=== PATIENT | female | born 1960 | race Caucasian/White ===

== ENCOUNTER 2024-06-17 10:47 | Inpatient (IN) | payer OTHER ==
[~2024-06-17] VITALS: Ht 157.5 cm; Wt 90.7 kg
[2024-06-17 10:56] VITALS: BP 94/52; PULSE 95; RESP 17; TEMP 97.9; O2SAT 99
--- NOTE | 2024-06-17 11:05 | NUR ---
64/F PRESENTED IN ED CC OF N/V/D SINCE YESTERDAY POST PT TAKING ANTIBIOTIC RX FOR THE SAME SYMPTOMS STATED BY PT CAREGIVER. HX OF N/V/D ON AND OFF FOR 3 WEEKS. PMHX MENTALYT DELAYED, DM, HTN NKA
--- NOTE | 2024-06-17 12:10 | NUR ---
Patient being evaluated by physician at bedside.
[2024-06-17 12:25] LABS: BASOPHILS % (AUTO) 0.1 % (0.0-2.0); EOSINOPHILS # (AUTO) 0.1 K/uL (0-0.4); EOSINOPHILS % (AUTO) 1.1 % (0.0-4.0); HEMATOCRIT 37.2 % (36-48); HEMOGLOBIN 12.4 g/dL (12.0-16.0); LYMPHOCYTES # (AUTO) 0.7 K/uL (2.5-16.5); MEAN CORPUSCULAR HEMOGLOBIN 30 pg (27-31); MEAN CORPUSCULAR HGB CONC 33 g/dL (33-37); MEAN CORPUSCULAR VOLUME 89.9 fL (80-94); MONOCYTES # (AUTO) 0.8 K/uL (0.8-1.0); MONOCYTES % (AUTO) 9.7 % (1.7-9.3); NEUTROPHILS # (AUTO) 6.8 K/uL (1.8-7.7); NEUTROPHILS % (AUTO) 81.1 % (42.2-75.2); PLATELET COUNT (AUTO) 127 K/uL (140-450); RED BLOOD CELL COUNT(AUTO) 4.14 MIL/uL (4.20-5.40); RED CELL DISTRIBUTION WIDTH 14.9 % (11.6-13.7); WHITE BLOOD COUNT (AUTO) 8.4 K/uL (4.8-10.8)
[2024-06-17 12:40] LABS: ALANINE AMINOTRANSFERASE 13 U/L (12-78); ALBUMIN 2.9 g/dL (3.4-5.0); ALKALINE PHOSPHATASE 78 U/L (50-136); ANION GAP 12.4 (8-16); ASPARTATE AMINOTRANSFERASE 11 U/L (15-37); CALCIUM 8.8 mg/dL (8.5-10.1); CARBON DIOXIDE 24.3 mmol/L (21-32); CHLORIDE 97 mmol/L (98-107); CREATININE 0.9 mg/dL (0.6-1.3); GFR ARICAN-AMERICAN 81 mL/min (>90); GFR NON ARICAN-AMERICAN 67 mL/min (>90); GLUCOSE 88 mg/dL (74-106); POTASSIUM 4.7 mmol/L (3.5-5.1); SODIUM SERUM 129 mmol/L (136-145); TOTAL BILIRUBIN 0.4 mg/dL (0.0-1.0); TOTAL PROTEIN, SERUM 7.8 g/dL (6.4-8.2); UREA NITROGEN, BLOOD 26 mg/dL (7-18)
[2024-06-17 13:04] LABS: BILIRUBIN,URINE NEGATIVE (NEGATIVE); BLOOD, URINE 1+ (NEGATIVE); COLOR,URINE YELLOW (YELLOW); LEUKOCYTE ESTERASE ,URINE TRACE (NEGATIVE); NITRITE, URINE POSITIVE (NEGATIVE); PROTEIN,URINE NEGATIVE (NEGATIVE); UGLUCOSE NEGATIVE (NEGATIVE); UROBILINOGEN,URINE 0.2 EU/dL (0.2 - 1)
[2024-06-17 13:06] LABS: APPEARANCE,URINE SLIGHTLY HAZY (CLEAR)
[2024-06-17] MEDS: KETOROLAC 30 MG/ML VIAL IVP ONE (13:20)
[2024-06-17] MEDS: NACL 0.9% 1,000 ML IV ONE ×2 (13:21→15:16)
[2024-06-17 13:54] LABS: LACTIC ACID 2.2 mmol/L (0.4-2.0)
[2024-06-17 14:10] LABS: BACTERIA,URINE 1+ /HPF (None Seen)
[2024-06-17 14:12] LABS: SQUAMOUS EPITHELIAL CELL,UR 0-3 (FEW) /LPF (0-3 (FEW))
[2024-06-17] MEDS ORDERED: cefTRIAXone 1,000 MG VIAL ONE (15:08)
--- NOTE | 2024-06-17 15:24 | NUR ---
PT PRIMARY CAREGIVER SOBIA STATED SHE WILL FAX THE MOST RECENT ACTIVE MEDICATION PT IS TAKING TO ER. WHEN ASK LIST OF PT MEDICATION FOR MED RECONCILIATION.
--- NOTE | 2024-06-17 15:45 | NUR ---
SOBIA, PT's CAREGIVER STATED SHE WILL BE TAKING PT's BELONGINGS WITH HER BACK HOME.
[2024-06-17] MEDS: NACL 0.9% 1,000 ML IV SCH (16:10)
[2024-06-17] MEDS ORDERED: DEXTROSE 50% 50 ML SYR IVP PRN (16:10)
[2024-06-17] MEDS ORDERED: HYDROcodone/APAP 5/325 MG 1 TAB TAB PO PRN (16:10)
[2024-06-17] MEDS ORDERED: ACETAMINOPHEN 325 MG TAB PO PRN (16:10)
[2024-06-17] MEDS ORDERED: INSULIN LISPRO SLIDING SCALE 100 UNITS/ML VIAL SUBQ PRN (16:10)
[2024-06-17] MEDS: BLOOD GLUCOSE MONITORING 1 DEV DEV FS SCH (17:05)
--- NOTE | 2024-06-17 17:05 | NUR ---
BG 45 MD VIGIL INFORMED ,AND MD LAWSON WAS PAGED
--- NOTE | 2024-06-17 17:08 | NUR ---
PT IV IS INFILTRATED UNABLE TO PUSH IV PUSH MEDICATION FOR PT BLOOD SUGAR ABBOJECT, CN EMANUEL INFOMRED PT IS HARD STICK.
--- NOTE | 2024-06-17 17:10 | NUR ---
PT OFFERED ORANGE JUICE 2 SERVING SIZE OF OJ P.O
[2024-06-17] MEDS: DEXTROSE 50% 50 ML SYR IVP ONE (17:52)
--- NOTE | 2024-06-17 17:58 | NUR ---
REPORT GIVEN TO HUGH ROMAN PT GOING TO 118 TELE. MED REC UNABLE TO OBTAIN RN YAMILET RAMSAY PRIMARY STRAW BOSS TO FAX THE MED LIST. NO MED LIST RECIEVED OF THIS POINT.
--- NOTE | 2024-06-17 18:04 | NUR ---
UNABLE TO OBTAIN HOME MEDICATION AT THIS TIME. CN INFORMED.
--- NOTE | 2024-06-17 18:09 | NUR ---
PRIMARY COLLECTIONS ASSISTANT SOBIA WAS GIVEN A CALL TO FOLLOW UP WITH PT HOME MED LIST UNABLE TO REACH. NO FAX MEDICATION RECIEVE SOBIA STATED PRIOS LEAVING THE HOSPITAL
--- NOTE | 2024-06-17 18:23 | NUR ---
PT TRANSFER TO TELE 118 RN INFORMED UNABLE TO OBTAIN MEDICATION, AND GLUCOSE 106 PRIOR TO DC IN ED. NO FURTHER QUESTIONS ASKED.
[2024-06-17 18:30] VITALS: PULSE 71; RESP 18; O2SAT 100
--- NOTE | 2024-06-17 18:40 | NUR ---
Admitted from , with chief complaint of , 64 y/o ,Female, Anxious, oriented to call light, bed, phone,television, bathroom, smoking policy, visiting hours, procedures, ID bracelet on. Belongings list checked. [PATIENT RECEIVED VFROM ER VIA [facility] ,A/RONAK3 , VSS , MONITOR APPLIED , SKIN INTACT INCONTINENT X2 , BEDBOUND , ON IV FLUID 50ML/H , ON CONTACT ISOLATION FOR S DIFF SAFETY PRECAUTION APPLIED , BED IN LOWER POSITION , CALL LIGHT WITHIN REACH , SIDE RAILS UPX2 PATIENT ON ROOM AIR , MRSA TAKEN ,STILL UNDER OBSERVE
[2024-06-17 18:46] VITALS: BP 104/50; PULSE 69; RESP 20; TEMP 98.2; O2SAT 100
--- NOTE | 2024-06-17 19:06 | NUR ---
SHIFT REPORT GIVEN TO NIGHT NURSE MEGHAN MICHEL ALL HER QUESTION ANSWERED ADDRESSED TO CONTINUED ADDITION PT .
--- NOTE | 2024-06-17 19:30 | NUR ---
RECEIVED PATIENT FROM [facility] NURSE DANIELLE. PATIENT STABLE.
[2024-06-17 20:00] VITALS: PULSE 68; PULSE 69; RESP 20; O2SAT 100
--- NOTE | 2024-06-17 20:00 | NUR ---
Patient's Plan of Care was discussed and reviewed with KODY MICHEL:
--- NOTE | 2024-06-17 23:00 | NUR ---
ROUNDED ON PATIENT. 2100 BS AT 85 NO COVERAGE NEEDED. VITALS COMPLETED. ALL SAFETY MEASURES IN PLACE WITH BED AT LOWEST POSITION AND CALL LIGHT WITHIN REACH. NO C/O PAIN OR DISCOMFORT AT THIS TIME. READJUSTED PATIENT WITH COUNTRY PRINTER APPRENTICE ROCHELLA.
[2024-06-18] VITALS: BP 100/67; PULSE 68; PULSE 76; RESP 21; TEMP 97.3; O2SAT 95
--- NOTE | 2024-06-18 02:41 | NUR ---
ROUNDED ON PATIENT. PATIENT LYING IN BED COMFORTABLY WITH NO S/SX OF DISCOMFORT OR DISTRESS NOTED AT THIS TIME. EYES CLOSED BILATERALLY WITH CHEST IS RISING AND FALLING SYMMETRICALLY. ALL SAFETY MEASURES IN PLACE WITH CALL LIGHT IN REACH.
[2024-06-18 04:00] VITALS: BP 95/37; PULSE 68; PULSE 69; RESP 20; TEMP 97.5; O2SAT 98
[2024-06-18 06:42] LABS: BASOPHILS % (AUTO) 0.3 % (0.0-2.0); EOSINOPHILS # (AUTO) 0.1 K/uL (0-0.4); EOSINOPHILS % (AUTO) 2.1 % (0.0-4.0); HEMATOCRIT 29.7 % (36-48); LYMPHOCYTES % (AUTO) 16.8 % (20.5-51.1); MEAN CORPUSCULAR HEMOGLOBIN 30 pg (27-31); MEAN CORPUSCULAR HGB CONC 34 g/dL (33-37); MEAN CORPUSCULAR VOLUME 89.7 fL (80-94); MONOCYTES # (AUTO) 0.7 K/uL (0.8-1.0); MONOCYTES % (AUTO) 12.8 % (1.7-9.3); NEUTROPHILS # (AUTO) 3.9 K/uL (1.8-7.7); PLATELET COUNT (AUTO) 105 K/uL (140-450); RED BLOOD CELL COUNT(AUTO) 3.31 MIL/uL (4.20-5.40); RED CELL DISTRIBUTION WIDTH 14.6 % (11.6-13.7); WHITE BLOOD COUNT (AUTO) 5.7 K/uL (4.8-10.8)
--- NOTE | 2024-06-18 06:54 | NUR ---
ENDORSED PATIENT TO GARCIA ARELLANO. PATIENT STABLE.
[2024-06-18 06:55] LABS: ANION GAP 12.1 (8-16); CALCIUM 8.1 mg/dL (8.5-10.1); CARBON DIOXIDE 25.2 mmol/L (21-32); CREATININE 0.8 mg/dL (0.6-1.3); POTASSIUM 4.3 mmol/L (3.5-5.1)
[2024-06-18 08:00] VITALS: BP 92/46; PULSE 65; RESP 18; TEMP 96.9; O2SAT 96
--- NOTE | 2024-06-18 08:32 | NUR ---
PATIENT RECEIVED FROM [facility] SHIFT , A/OX3 , VSS , ON IV FLUID 50ML/H , N/S 0.9% SKIN INTACT , SINUS RHYTHM ON MONITOR , BEDBOUND , ON CONTACT ISOLATION FOR C.DFF , SAFETY PRECAUTION ON PLACE , SIDE RAILS UP X3 , BED IN LOWER POSITION CALL LIGHT WITHIN REACH , INCONTINENT X2 , PT STILL UNDER OBSERVE .
--- NOTE | 2024-06-18 09:03 | NUR ---
PATIENT HAS BEEN SCREENED AND CATEGORIZED HIGH NUTRITION RISK. PATIENT WILL BE SEEN WITHIN 1-2 DAYS OF ADMISSION. 06/18/24 06/19/24 [facility] REFERRAL RECEIVED FOR VOMITING > [address]
[2024-06-18 12:00] VITALS: BP 115/46; PULSE 55; PULSE 65; RESP 18; TEMP 97; O2SAT 96
--- NOTE | 2024-06-18 12:46 | NUR ---
SW ASSESSMENT Addendum: 06/18/24 at 1247 by Calin ARRIAGA Amended: Links added.
--- NOTE | 2024-06-18 13:00 | NUR ---
PATIENT ON BED REST , PAIN MEDS GIVEN , VSS , SAFETY ON PLACE , PT STILL UNDER OBSERVE .
--- NOTE | 2024-06-18 13:03 | NUR ---
06/18/24 RD INITIAL ASSESSMENT COMPLETED PLEASE REFER TO NUTRITION ASSESSMENT UNDER CARE ACTIVITY FOR ESTIMATED NUTRITIONAL NEEDS. 1. CONTINUE [id number], CARDIAC DIET TOLERATED 2. CONSIDER BANATROL BID IF DIARRHEA PERSISTS UNTIL SYMPTOMS RESOLVED 3. RD TO FOLLOW-UP 3-5 DAYS, MODERATE RISK DEJAN KATZ, RD
[2024-06-18 16:00] VITALS: BP 111/42; PULSE 60; RESP 18; TEMP 97.6; O2SAT 98
--- NOTE | 2024-06-18 16:55 | NUR ---
PATIENT ON BED REST , VSS , ON IV FLUID , NO COMPLAIN SAFETY ON PLACE , PT STILL UNDER OBSERVE .
--- NOTE | 2024-06-18 19:18 | NUR ---
RECEIVED REPORT FROM DAY SHIFT NURSE. PT IS AWAKE, ALERT AND VERBALLY RESPONSIVE. PT IS ON ROOM AIR WITH CARDIAC DIET. IV SITE IS ON RIGHT WRIST 22G. SKIN INTACT.
--- NOTE | 2024-06-18 19:19 | NUR ---
PQATIENT ENDORSED TO NIGHT NURSE LIA ROMAN, ALL HER QUESTION ANSWERED
[2024-06-18 20:00] VITALS: BP 119/66; PULSE 65; PULSE 68; PULSE 75; RESP 18; TEMP 97.7; O2SAT 96; O2SAT 98
[2024-06-19] VITALS (7 sets, daily range): BP systolic 98–130; BP diastolic 42–62; PULSE 52–71; RESP 17–20; TEMP 96.9–98; O2SAT 93–100
[2024-06-19 06:51] LABS: BASOPHILS % (AUTO) 0.5 % (0.0-2.0); EOSINOPHILS # (AUTO) 0.1 K/uL (0-0.4); EOSINOPHILS % (AUTO) 2.5 % (0.0-4.0); HEMATOCRIT 30.6 % (36-48); HEMOGLOBIN 10.2 g/dL (12.0-16.0); LYMPHOCYTES # (AUTO) 0.8 K/uL (2.5-16.5); LYMPHOCYTES % (AUTO) 16.3 % (20.5-51.1); MEAN CORPUSCULAR HEMOGLOBIN 30 pg (27-31); MEAN CORPUSCULAR HGB CONC 33 g/dL (33-37); MEAN CORPUSCULAR VOLUME 89.9 fL (80-94); MONOCYTES # (AUTO) 0.5 K/uL (0.8-1.0); MONOCYTES % (AUTO) 10.6 % (1.7-9.3); NEUTROPHILS # (AUTO) 3.6 K/uL (1.8-7.7); NEUTROPHILS % (AUTO) 70.1 % (42.2-75.2); PLATELET COUNT (AUTO) 106 K/uL (140-450); RED BLOOD CELL COUNT(AUTO) 3.41 MIL/uL (4.20-5.40); RED CELL DISTRIBUTION WIDTH 15.1 % (11.6-13.7); WHITE BLOOD COUNT (AUTO) 5.1 K/uL (4.8-10.8)
[2024-06-19 07:13] LABS: ANION GAP 12.3 (8-16); CALCIUM 8.7 mg/dL (8.5-10.1); CARBON DIOXIDE 25.7 mmol/L (21-32); CREATININE 0.8 mg/dL (0.6-1.3)
--- NOTE | 2024-06-19 07:54 | NUR ---
PATIENT RECEIVED FROM [facility] SHIFT , A/OX3 , VSS , ON IV FLUID 50ML/H , N/S 0.9% SKIN INTACT , SINUS RHYTHM ON MONITOR , BEDBOUND , ON CONTACT ISOLATION FOR C.DFF , SAFETY PRECAUTION ON PLACE , SIDE RAILS UP X3 , BED IN LOWER POSITION CALL LIGHT WITHIN REACH , INCONTINENT X2 , PT STILL UNDER OBSERVE .
[2024-06-19] MEDS: LORazepam 1 MG TAB PO PRN (11:44)
[2024-06-19] MEDS: MUPIROCIN CA NASAL 2% 1GM TUBE NS SCH (12:01)
[2024-06-19] MEDS: CHLORHEXADINE GLUC 2% CLOTH TP SCH (12:01)
--- NOTE | 2024-06-19 13:06 | NUR ---
patient on bed rest , vss , no complain , pt clam down after Ativan given patient trending down to medsurge , pt still under observe .
[2024-06-19] MEDS: MEROPENEM 1,000 MG in NACL 0.9% 50 ML IV SCH (14:42)
--- NOTE | 2024-06-19 16:26 | NUR ---
patient on bed rest , vss , no complain , pt on ccho diet , safety on place , contact isolation for mrsa , esbl and c diff , pt in iv fluid 50ml/h , pt still under observe .
--- NOTE | 2024-06-19 19:20 | NUR ---
REPORT GIVEN BY AM NURSE DANIELLE RN FOR CONTINUITY OF CARE, PT AWAKE, ALERT, ORIENTEDX3, PT CONTACT ISOLATION PER PROTOCOL, IV RIGHT HAND 22G, NS @50 ML/HR, FLUSHED WITH NS WITHOUT DIFFICULTY, PT RESPIRATION EQUAL, NON LABORED, ROOM AIR, BED IN LOWEST POSITION, RAILS UPX2, CALL LIGHT WITHIN REACH,COMMUNICATION BOARD UPDATED, WILL CONTINUE FREQUENT ROUND, WILL CONTINUE TO MONITOR.[email or web address]
--- NOTE | 2024-06-19 22:00 | NUR ---
FOR BS 111, NO COVERAGE ORDERED, PT TOLERATED ACTIVITY WELL, RESPIRATION EQUAL , NON LABORED, CALL LIGHT WITHIN REACH, WILL CONTINUE TO MONITOR.[email or web address]
[2024-06-20 04:00] VITALS: BP 117/60; PULSE 60; RESP 18; TEMP 96.6; O2SAT 97
--- NOTE | 2024-06-20 06:50 | NUR ---
FOR BS 81 NO COVERAGE NOTED, PT TOLERATED ACTIVITY WELL, NO S/S OF DISTRESS NOTED.CALL LIGHT WITHIN REACH.[email or web address]
[2024-06-20 06:57] LABS: BASOPHILS % (AUTO) 0.3 % (0.0-2.0); EOSINOPHILS # (AUTO) 0.1 K/uL (0-0.4); EOSINOPHILS % (AUTO) 2.2 % (0.0-4.0); HEMATOCRIT 30.7 % (36-48); HEMOGLOBIN 10.4 g/dL (12.0-16.0); LYMPHOCYTES % (AUTO) 18.7 % (20.5-51.1); MEAN CORPUSCULAR HEMOGLOBIN 30 pg (27-31); MEAN CORPUSCULAR HGB CONC 34 g/dL (33-37); MEAN CORPUSCULAR VOLUME 90.3 fL (80-94); MONOCYTES # (AUTO) 0.5 K/uL (0.8-1.0); MONOCYTES % (AUTO) 10.3 % (1.7-9.3); NEUTROPHILS # (AUTO) 3.5 K/uL (1.8-7.7); NEUTROPHILS % (AUTO) 68.5 % (42.2-75.2); PLATELET COUNT (AUTO) 119 K/uL (140-450); RED CELL DISTRIBUTION WIDTH 14.6 % (11.6-13.7); WHITE BLOOD COUNT (AUTO) 5.2 K/uL (4.8-10.8)
--- NOTE | 2024-06-20 07:20 | NUR ---
REPORT GIVEN TO AM NURSE ZHOU MICHEL FOR CONTINUITY OF CARE, NO S/S OF DISTRESS NOTED, CALL LIGHT WITHIN REACH.[email or web address]
--- NOTE | 2024-06-20 07:25 | NUR ---
RECEIVED REPORT FROM [facility] NURSE AND ASSUMED CARE OF 64 Y/O FEMALE WITH DX OF UTI, DIARRHEA. PT IS A/A/O X3, ABLE TO VERBALIZE NEEDS. VISION IMPAIRED. SKIN WARM TO TOUCH, RESPIRATIONS EVEN AND UNLABORED, ABDOMEN SOFT AND NON-DISTENDED. PT IN NON AMBULATORY AND INCONTINENT OF BOWEL AND BLADDER. ON CONTACT ISOLATION PRECAUTIONS D/T MRSA NARES AND ESBL URINE. ALSO FOR C.DIFF R/O BUT PATIENT HAS NOT HAD A BOWEL MOVEMENT. PERIPHERAL LINE ON RIGHT HAND 22G INTACT RUNNING NS AT 50 MLS/HR. BED IN LOW POSITION WITH CALL LIGHT IN REACH. PENDING CULTURE PER REPORT, WILL CONTINUE TO MONITOR.
[2024-06-20 07:26] LABS: ANION GAP 9.7 (8-16); CALCIUM 8.4 mg/dL (8.5-10.1); CARBON DIOXIDE 28.3 mmol/L (21-32); CREATININE 0.7 mg/dL (0.6-1.3)
[2024-06-20 08:00] VITALS: BP 114/52; PULSE 65; RESP 17; TEMP 97.8; O2SAT 100
[2024-06-20 09:36] VITALS: TEMP 97.8
[2024-06-20] MEDS ORDERED: MERO1VIA15 IV (11:54)
--- NOTE | 2024-06-20 12:00 | NUR ---
PT STABLE IN ROOM CALL LIGHT WITHIN REACH, NO DISTRESS NOTED.
[2024-06-20 12:07] VITALS: BP 114/52; PULSE 65; RESP 17; TEMP 97.8
--- NOTE | 2024-06-20 13:15 | NUR ---
PLACED CALL TO SOBIA CAREGIVER FROM [facility] TO MAKE AWARE THAT PATIENT WILL BE DISCHARGED TO [facility] FOR [facility]. YOUSSEF. TRANSPORTATION ARRANGED FOR 3PM.
--- NOTE | 2024-06-20 13:19 | NUR ---
PLACED CALL TO [facility] IN [place], SPOKE WITH KENN AND GAVE REPORT FOR PATIENT. PER KENN , PATIENT WILL GO TO ROOM 55.
--- NOTE | 2024-06-20 13:50 | NUR ---
RECEIVED CALL FROM A PROFESSOR OF RHETORIC FROM [facility], STATED SHE IS ARRANGING TRANSPORTATION FOR PATIENT TO GO TO [facility] PER REQUEST OF CAREGIVER SOBIA. MADE AWARE THAT NURSE HAS ALREADY SPOKEN TO SOBIA AND REPORT HAS ALREADY BEEN GIVEN TO [facility]. PER PROFESSOR OF RHETORIC, SHE ALSO IS PROFESSOR OF RHETORIC FOR [facility] SO SHE KNOWS THEY WILL NOT ACCEPT PATIENT AND SHE WILL ARRANGE TRANSPORTATION.
--- NOTE | 2024-06-20 13:55 | NUR ---
SPOKE WITH [facility] DESIGN TECHNICIAN, AWARE OF CHANGE OF ACCEPTING FACILITY.
--- NOTE | 2024-06-20 14:09 | NUR ---
PLACED CALL TO [facility] SPOKE WITH KENN, MADE AWARE PATIENT WILL NOT BE GOING THERE. APPRECIATIVE OF CALL.
--- NOTE | 2024-06-20 14:22 | NUR ---
PLACED CALL TO [facility], REPORT GIVEN TO
[2024-06-20 16:00] VITALS: BP 129/78; PULSE 84; RESP 18; TEMP 97.8; O2SAT 97
--- NOTE | 2024-06-20 16:06 | NUR ---
PLACED CALL TO SOBIA THE CAREGIVER TO ASK IF SHE KNOWS TRANSPORTION ETA . STATED SHE DOES NOT. SHE HAS BEEN IN TOUCH WITH ELVIS THE [employer]UR[employer] MAN FOR [place] BUT DOES NOT KNOW ETA. PATIENT IS BECOMING RESTLESS. READY TO GO, MADE AWARE OF SITUATION.
--- NOTE | 2024-06-20 17:40 | NUR ---
PT DISCHARGED TO [facility]. [facility] ST[facility] ALL P[employer]ERWORKS AND BELONGINGS SENT WITH TRANSPORTATION. DCI GIVEN TO NURSE DURING REPORT. PATIENT LEFT WITH IV RIGHT HAND 22G FOR CONTINUED IV ATB AT [facility].
== END 2024-06-20 17:49 | DRG 371 ==
LOC: MED 10:47 → MTU 16:09
PROVIDERS: ADMIT Student in an Organized Health Care Education/Training Program; ATTEND Student in an Organized Health Care Education/Training Program
DX: A04.9 Bacterial intestinal infection, unspecified (principal); E43 Unspecified severe protein-calorie malnutrition; N30.00 Acute cystitis without hematuria; E11.9 Type 2 diabetes mellitus without complications; I10 Essential (primary) hypertension; B96.20 Unspecified Escherichia coli [E. coli] as the cause of diseases classified elsewhere
CPT/HCPCS: 36415; 80048; 80053; 81001; 82948; 83605; 83690; 84484; 85025; 87040; 87081; 87086; 87186; 93005; 96365; 96375; 99285; J0696; J1815; J1885; J2185; J7060